=== PATIENT | male | born 1980 | race Asian ===

== ENCOUNTER 2020-12-04 11:34 | Emergency (ER) | payer OTHER ==
[~2020-12-04] VITALS: Ht 165.1 cm; Wt 83.9 kg
[2020-12-04] MEDS ORDERED: NOHOMEMEDICATIONS (12:12)
[2020-12-04 14:14] LABS: ABSOLUTE NEUTROPHILS 7.7 thou/uL (1.4-8.2); BASOPHILS 0.4 % (0.0-2.0); EOSINOPHILS 2.3 % (0.0-3.0); HEMATOCRIT 44.6 % (42.0-52.0); HEMOGLOBIN 15.1 gm/dL (14.0-18.0); LYMPHOCYTES 25.8 % (24.0-44.0); MCHC 33.8 g/dL (28.0-37.0); MCV 85.9 fL (80.0-100.0); MONOCYTES 9.5 % (1.0-8.0); PLATELET COUNT 239 thou/uL (150-400); RBC 5.19 mil/uL (4.50-6.00); RDW 14.3 % (10.5-14.5); WBC 12.4 thou/uL (4.0-11.0)
[2020-12-04 14:22] LABS: CREATININE 0.8 mg/dL (0.7-1.3); POTASSIUM 3.7 mmol/L (3.5-5.1)
[2020-12-04] MEDS ORDERED: NORCO7.5 PO (15:29)
[2020-12-04] MEDS ORDERED: BACTRIM DS TAB1 EACH PO (15:29)
[2020-12-04 15:49] VITALS: BP 146/80
== END 2020-12-04 15:50 | disposition home or self-care (01) ==
LOC: ER 11:34
PROVIDERS: Emergency Medicine
DX: K12.2 Cellulitis and abscess of mouth (principal); F17.210 Nicotine dependence, cigarettes, uncomplicated

== ENCOUNTER 2020-12-06 17:41 | Emergency (ER) | payer OTHER ==
[~2020-12-06] VITALS: Ht 165.1 cm; Wt 83.9 kg
[2020-12-06 17:41] VITALS: BP 111/73
[~2020-12-06 17:41] MED LIST: BACTRIM DS TAB1 EACH PO; NOHOMEMEDICATIONS; NORCO7.5 PO
== END 2020-12-06 18:21 | disposition home or self-care (01) ==
LOC: ER 17:41
DX: T81.49XA Infection following a procedure, other surgical site, initial encounter (principal); Z79.899 Other long term (current) drug therapy; Z79.891 Long term (current) use of opiate analgesic; Y83.8 Other surgical procedures as the cause of abnormal reaction of the patient, or of later complication, without mention of misadventure at the time of the procedure; Y92.89 Other specified places as the place of occurrence of the external cause

== ENCOUNTER 2020-12-09 16:57 | Emergency (ER) | payer OTHER ==
[~2020-12-09] VITALS: Ht 165.1 cm; Wt 79.4 kg
[2020-12-09 17:01] VITALS: BP 136/90
== END 2020-12-09 17:48 | disposition home or self-care (01) ==
LOC: ER 16:57
DX: Z48.03 Encounter for change or removal of drains (principal); Z79.899 Other long term (current) drug therapy; Z79.891 Long term (current) use of opiate analgesic